=== PATIENT | female | born 1965 | race Caucasian/White ===

== ENCOUNTER 2021-06-20 02:13 | Inpatient (IN) | payer MEDICARE ==
[2021-06-20] MEDS ORDERED: DEXAMETHASONE 10 MG/ML VIAL IVP STA (02:25)
--- NOTE | 2021-06-20 02:30 | ED Physician Documentation ---
PD HPI DYSPNEA - Stated complaint Stated Complaint: SOA - Chief complaint Chief Complaint: Resp - History obtained from History obtained from: Patient - Additional information Additional information: 55yF with pmh sarcoidosis p/w SOA X 2-3 days, gradual onset, progressive, worse with exertion, a/w nonproductive cough. patient was on the ob floor watching her daughter give , became SOA and came to the ED. of note she was covid + Jun 09, 2021 per her GARRY. She states she had been feeling better, but then worsened again, was put on a steroid taper by her consulting sales executive and still has 3 days left . denies fever, cp, nausea. Patient o2 sat in high 70s on RA with good pleth on arrival, improving to 92% on 3L nasal cannula. Review of Systems Ten Systems: 10 systems reviewed and negative Constitutional: denies: Fever, Chills Respiratory: reports: Dyspnea, Cough GI: denies: Nausea PD PAST MEDICAL HISTORY - Allergies Allergies/Adverse Reactions: Allergies Allergy/AdvReac Type Severity Reaction Status Date / Time No Known Drug Allergies Allergy Verified 06/20/21 02:35 PD ED PE NORMAL - Vitals Vital signs reviewed: Yes - General General: Alert and oriented X 3, Well developed/nourished, Other (mild respiratory distress) - HEENT HEENT: Atraumatic, PERRL, EOMI - Neck Neck: Supple, no meningeal sign - Cardiac Cardiac: RRR - Respiratory Respiratory: Other (BL coarse breath sounds) - Abdomen Abdomen: Non tender, Non distended - Back Back: No CVA TTP - Derm Derm: Normal color, Warm and dry - Extremities Extremities: No deformity, No edema, No calf tenderness / cord - Neuro Neuro: Alert and oriented X 3, No motor deficit, No sensory deficit, Normal speech - Psych Psych: Normal mood, Normal affect Results - Vitals Vitals: Vital Signs - 24 hr 06/20/21 06/20/21 06/20/21 02:14 02:15 02:30 Temperature 36.7 C Heart Rate 71 64 Respiratory 24 24 Rate Blood Pressure 128/72 128/78 O2 Saturation 85 L 77 L 96 06/20/21 03:03 Temperature Heart Rate 61 Respiratory 23 Rate Blood Pressure 121/72 O2 Saturation 94 Oxygen O2 Source Room air Oxygen Flow Rate 3 - Labs Labs: Laboratory Tests 06/20/21 06/20/2122 02:35 02:35 02:45 WBC 5.9 RBC 3.67 L Hgb 11.0 L Hct 34.3 L MCV 93.5 MCH 30.0 MCHC 32.1 RDW 15.9 H Plt Count 268 MPV 8.9 Neut # (Auto) 4.5 Lymph # (Auto) 0.9 L [place] # (Auto) 0.4 Eos # (Auto) 0.0 Baso # (Auto) 0.0 Absolute Nucleated RBC 0.00 Nucleated RBC % 0.0 VBG pH 7.349 VBG pCO2 38.2 L VBG pO2 87.2 H VBG HCO3 20.6 L VBG Total CO2 21.7 L VBG O2 Saturation 95.8 H VBG Base Excess -4.6 L Sodium 135 Potassium 3.7 Chloride 103 Carbon Dioxide 21 Anion Gap 11.0 BUN 25 H Creatinine 1.0 Estimated GFR (MDRD) 58 L Glucose 100 Calcium 8.8 Total Bilirubin 0.4 AST 18 ALT 16 Alkaline Phosphatase 88 Total Protein 7.2 Albumin 3.1 L Globulin 4.1 Albumin/Globulin Ratio 0.8 L Lipase 207 H PD MEDICAL DECISION MAKING - ED course ED course: 55yF p/w hypoxia, recent diagnosis of covid, SOA on arrival with subjective improvement on 5L nasal cannula. d/w Dr. Dodge for admission. Departure - Departure Disposition: 66 [facility] DC/Xfer Clinical Impression: COVID-19, Shortness of breath, Anemia Condition: Stable
[2021-06-20 02:41] LABS: BASOPHILS % (AUTO) 0.3 %; EOSINOPHILS % (AUTO) 0.7 %; HCT - HEMATOCRIT 34.3 % (37.0-47.0); LYMPHOCYTES # (AUTO) 0.9 10^3/uL (1.5-3.5); MEAN CORPUSCULAR HGB CONC 32.1 g/dL (32.0-36.0); MEAN CORPUSCULAR VOLUME 93.5 fL (81.0-99.0); MEAN PLATELET VOLUME 8.9 fL (7.9-10.8); MONOCYTES # (AUTO) 0.4 10^3/uL (0.0-1.0); MONOCYTES % (AUTO) 6.1 %; NEUTROPHILS # (AUTO) 4.5 10^3/uL (1.5-6.6); NEUTROPHILS % (AUTO) 76.2 %; PLT - PLATELET COUNT 268 10^3/uL (130-450); RED BLOOD COUNT 3.67 10^6/uL (4.20-5.40); RED CELL DISTRIBUTION WIDTH 15.9 % (12.0-15.0); WHITE BLOOD COUNT 5.9 x10^3/uL (4.8-10.8)
[2021-06-20 02:51] LABS: VBG BASE EXCESS -4.6 mmol/L (-2 - +2); VBG HCO3 20.6 mmol/L (23-28); VBG OXYGEN SATURATION 95.8 % (60-80); VBG PCO2 38.2 mmHg (41-51); VBG PH 7.349 (7.31-7.41); VBG PO2 87.2 mmHg (25-47); VBG TOTAL CO2 21.7 mmol/L (24-29)
[2021-06-20 02:53] LABS: ALBUMIN 3.1 g/dL (3.2-5.5); ALBUMIN/GLOBULIN RATIO 0.8 (1.0-2.2); BILIRUBIN,TOTAL 0.4 mg/dL (0.2-1.0); CALCIUM 8.8 mg/dL (8.5-10.3); POTASSIUM 3.7 mmol/L (3.5-5.0); TOTAL PROTEIN 7.2 g/dL (6.7-8.2)
[2021-06-20] MEDS ORDERED: ACETAMINOPHEN 325 MG TABLET PO PRN (03:13)
[2021-06-20] MEDS ORDERED: ONDANSETRON 4 MG/2 ML VIAL IVP PRN (03:13)
[2021-06-20] MEDS ORDERED: SODIUM CHLORIDE FLUSH 0.9% 10 ML SYRINGE IVP PRN (03:13)
[2021-06-20] MEDS ORDERED: ONDANSETRON ODT 4 MG TABLET TL PRN (03:13)
--- NOTE | 2021-06-20 03:18 | HISTORY & PHYSICAL EXAMINATION ---
Chief Complaint - Chief Complaint Chief Complaint: Shortness of breath History of Present Illness - Admitted From Admitted From:: Home - History Obtained From Records Reviewed: Yes History obtained from: Patient, ER Physician, EMR - History of Present Illness HPI Comment/Other: This is a 55-year-old female with a past medical history significant for pulmonary sarcoidosis, psoriatic arthritis, rheumatoid arthritis, type 2 diabetes mellitus who presents today complaining of worsening shortness of breath. She states she demonstrated breath for past week or so but this has really progressed for the past 2 to 3 days. She was diagnosed with Covid she believes in mid May but was never hospitalized for this. The emergency department physician confirmed that she did test positive for Covid but this was actually more recent on June 09. The patient is vaccinated with maternal and has received a booster shot. She states that she began to feel short of breath about a little over a week ago and she had a televisit with her vending machine repairer at [facility] who prescribed her prednisone taper for suspected exacerbation of her pulmonary sarcoidosis. She states she is in the last 3 days of her taper now but she has felt more short of breath. She states she almost always feels short of breath with activity and that is her baseline but this is now a little worse than usual. She is not on oxygen at baseline. She states her pulse ox usually va michelle from 90-95% with activity and is above 95% at rest. She has had no fevers or chills. Her chronic cough is the same. She denies any chest pain, leg edema, history of DVT, recent travel. She is on methotrexate, hydroxychloroquine, Januvia. She normally takes methotrexate on Mondays but did not take this yesterday as she has been at the hospital with her daughter who just gave 3 days ago and she forgot to bring her medications. In the emergency department, she is noted to be hypoxic on room air with sats in the high 70s with activity. At rest her saturations were stable in the mid 90s on room air. Chest x-ray revealed bilateral infiltrates. She was given Decadron and medicine was consulted for admission. We discussed goals of care and she would like to be a full code. History - Past Medical History Respiratory: reports: Other (Sarcoidoss) Musculoskeletal: reports: Osteoarthritis, Rheumatoid arthritis, Other (Psoriatic arthritis.) - Family & Social History Family History Comment/Other: She reports both of her parents had a history of diabetes and heart disease. Living arrangement: At home Social History Notes: She is a non-smoker and has never smoked. She will rarely drink alcohol. Meds/Allgy - Allergies Allergies/Adverse Reactions: Allergies Allergy/AdvReac Type Severity Reaction Status Date / Time No Known Drug Allergies Allergy Verified 06/20/21 02:35 Review of Systems - Constitutional Constitutional: denies: Fatigue, Fever, Chills - Ears, Nose & Throat Ears, Nose & Throat: denies: Nasal discharge, Nasal congestion - Cardiovascular Cariovascular: reports: Exertional dyspnea, Decr. exercise tolerance. denies: Chest pain, Edema, Lightheadedness, Syncope - Respiratory Respiratory: reports: Cough, SOB at rest, SOB with exertion. denies: Sputum production - Gastrointestinal Gastrointestinal: denies: Abdominal pain, Nausea, Vomiting - Genitourinary Genitourinary: denies: Dysuria, Frequency, Urgency, Hematuria - Musculoskeletal Musculoskeletal: denies: Muscle pain, Muscle aches - Integumentary Integumentary: denies: Rash - Neurological Neurological: denies: General weakness, Focal weakness, Dizziness - Hematologic/Lymphatic Hematologic/Lymphatic: denies: Blood clots, Bleeding tendencies - All Other Systems All Other Systems: reports: Reviewed and negative Prior Level of Functionality: She is independent with her ADLs. Exam - Vital Signs Reviewed Vital Signs: Yes Vital Signs: Vital Signs x48h Temp Pulse Resp BP Pulse Ox 06/20/21 02:30 64 24 128/78 96 06/20/21 02:15 77 L 06/20/21 02:14 36.7 C 71 24 128/72 85 L - Physical Exam General Appearance: positive: No acute distress, Alert Eyes Bilateral: positive: Normal inspection, Conjunctivae nml ENT: positive: ENT inspection nml Neck: positive: Nml inspection Respiratory: positive: No respiratory distress, Rhonchi. negative: Wheezes, Rales Cardiovascular: positive: Regular rate & rhythm, No murmur. negative: Tachycardia Abdomen: positive: Non-tender, No distention. negative: Tenderness Skin: positive: Warm, Dry Extremities: positive: No pedal edema Neurologic/Psychiatric: positive: Motor nml. negative: Disoriented to person, Disoriented to place, Disoriented to time Conclusion/Plan - Problem List (1) Acute respiratory failure with hypoxia Conclusion/Plan: This appears to be secondary to COVID-19 pneumonia. Her chest x-ray reveals bilateral infiltrates. She has no fever or leukocytosis. She is not hypoxic at rest but she does desaturate to 70% on room air with minimal activity. There is no obvious evidence of bacterial infection at this time. We will place her on Decadron. No remdesivir given she has been ill for nearly 2 weeks now. We will check a D-dimer at this is elevated we will proceed with a CT angiogram for further evaluation. (2) Pneumonia due to COVID-19 virus Conclusion/Plan: This appears to be the cause of her respiratory failure with hypoxia. X-ray reveals bilateral infiltrates. She is vaccinated with a booster shot. Management as mentioned above. (3) Pulmonary sarcoidosis Conclusion/Plan: She has a known history of pulmonary sarcoidosis which has been stable. We will manage her respiratory failure which is felt to be secondary to the COVID-19 pneumonia as mentioned above. (4) Type 2 diabetes mellitus Conclusion/Plan: She is on Januvia at home. We will place her on a carb controlled diet and sl iding scale. If her blood glucose becomes elevated due to steroids then we will add Lantus. (5) Rheumatoid arthritis Conclusion/Plan: She is on methotrexate which we will hold at this time given the concern for COVID-19 pneumonia. Tylenol as needed for pain. - Lab Results Lab results reviewed: Yes Fish Bones: 06/20/21 02:35 06/20/21 02:35 - Diagnostic Imaging Results Diagnostic Imaging Results: positive: Prelim report reviewed Core Measures - Anticipated LOS I expect patient to be DC'd or transferred within 96 hours.: Yes - Issues Hospital Issues and Management Plan: 55-year-old female with a history of pulmonary sarcoidosis, rheumatoid arthritis, diabetes mellitus presents with worsening dyspnea after being diagnosed with Covid about 11 days ago. She will be admitted for steroids. - DVT/VTE - Prophylaxis VTE/DVT Device ordered at admit?: Yes VTE/DVT Prophylaxis med ordered at admit?: Yes
[2021-06-20 03:35] LABS: CORONAVIRUS 229E-RESP PCR NOT DETECTED; CORONAVIRUS HKU1-RESP PCR NOT DETECTED; CORONAVIRUS NL63-RESP PCR NOT DETECTED; CORONAVIRUS OC43-RESP PCR NOT DETECTED
[2021-06-20 03:37] LABS: B. PARAPERTUSSIS- RESP PCR PAN NOT DETECTED; B. PERTUSSIS- RESP PCR PANEL NOT DETECTED; C. PNEUMONIAE- RESP PCR PANEL NOT DETECTED; HUMAN METAPNEUMOVIRUS NOT DETECTED; INFLUENZA A- RESP PCR PANEL NOT DETECTED; INFLUENZA B - RESP PCR PANEL NOT DETECTED; M. PNEUMONIAE- RESP PCR PANEL NOT DETECTED; PARAINFLUENZA VIRUS 1 NOT DETECTED; PARAINFLUENZA VIRUS 2 NOT DETECTED; PARAINFLUENZA VIRUS 3 NOT DETECTED; PARAINFLUENZA VIRUS 4 NOT DETECTED; RHINOVIRUS/ENTEROVIRUS NOT DETECTED; RSV- RESP PCR PANEL NOT DETECTED; SARS-CoV-2 -RESP PCR PANEL DETECTED
--- NOTE | 2021-06-20 08:22 | XRAY Report ---
PROCEDURE: Chest 1 View X-Ray INDICATIONS: covid+ SOA TECHNIQUE: One view of the chest was acquired. COMPARISON: 01/05/2016 FINDINGS: Surgical changes and devices: None. Lungs and pleura: No pleural effusions or pneumothorax. Moderate basilar predominant reticulonodular pulmonary opacity. Mediastinum: Mediastinal contours appear normal. Heart size is normal. Bones and chest wall: No suspicious bony lesions. Overlying soft tissues appear unremarkable. IMPRESSION: Moderate bilateral pneumonia. Concordant with preliminary interpretation. Reviewed by: Paige Luong MD on 06/20/2021 8:20 AM [facility] Approved by: Paige Luong MD on 06/20/2021 8:20 AM [facility] Station ID: [id number]
[2021-06-20] MEDS: INSULIN ASPART 300 UNIT/3 ML PEN SUBQ SCH ×4 (08:28→21:00)
[2021-06-20] MEDS: SODIUM CHLORIDE FLUSH 0.9% 10 ML SYRINGE IVP SCH ×2 (08:29→17:03)
[2021-06-20] MEDS: dexAMETHasone 4 MG TABLET PO SCH (08:29)
--- NOTE | 2021-06-20 08:37 | PROVIDER PROGRESS NOTE ---
Hospitalist Cross-cover Note - Cross-Cover Note Cross-Cover Note: This was a courtesy follow-up to admission done this morning around 3:00 AM Patient was resting comfortably in bed at time of exam. She denied dyspnea except with ambulation. She has a cough. She denies chest pain, fever or chills. Oxygen saturation was 97 to 99% on 2 L. She had a mild wheeze on auscultation. Her D-dimer was 1034.6. As a result CT angio of the chest was ordered. She was started empirically on therapeutic dose Lovenox 100 mg subcu twice daily. Robitussin with codeine and DuoNeb ordered.
[2021-06-20] MEDS ORDERED: ENOXAPARIN 40 MG/0.4 ML SYRINGE SUBQ SCH (09:00)
[2021-06-20] MEDS ORDERED: ENOXAPARIN 60 MG/0.6 ML SYRINGE SUBQ ONE (10:00)
--- NOTE | 2021-06-20 12:03 | PHARMACY PROGRESS NOTE ---
- Best Possible Medication History Admit Date and Time: 06/20/213 Processed by: Pharmacy Medication History completed: Yes Patient Interview: Completed Secondary Source(s): Pharmacy records, Insurance records As the person ultimately responsible for medication therapy, providers are able to order a medication from an existing home medication list in [facility] via the "Reconcile Routine" prior to Confirmation of that medication by client support consultant. Such practice is discouraged except when the physician, in their clinical judgment, deems that a medical need exists for a medication without regard to previous use.
[2021-06-20] MEDS ORDERED: IPRATROPIUM/ALBUTEROL 3 ML NEB INH PRN (13:41)
[2021-06-20] MEDS: guaiFENesin/CODEINE 5 ML UDC PO PRN ×2 (14:06→21:01)
[2021-06-20] MEDS ORDERED: ENOXAPARIN 100 MG/ML SYRINGE SUBQ SCH (21:00)
[2021-06-20] MEDS: ADVAIR 230/21 INH SCH (21:01)
[2021-06-21] MEDS: SODIUM CHLORIDE FLUSH 0.9% 10 ML SYRINGE IVP SCH ×3 (00:16→21:14)
[2021-06-21] MEDS ORDERED: IOVERSOL 320 100 ML VIAL IVP ONE ×2 (05:26→05:58)
[2021-06-21 07:19] LABS: BASOPHILS % (AUTO) 0.4 %; EOSINOPHILS % (AUTO) 0.8 %; HCT - HEMATOCRIT 34.3 % (37.0-47.0); HGB - HEMOGLOBIN 10.7 g/dL (12.0-16.0); LYMPHOCYTES # (AUTO) 0.8 10^3/uL (1.5-3.5); MEAN CORPUSCULAR HEMOGLOBIN 29.6 pg (27.0-31.0); MEAN CORPUSCULAR HGB CONC 31.2 g/dL (32.0-36.0); MEAN CORPUSCULAR VOLUME 94.8 fL (81.0-99.0); MEAN PLATELET VOLUME 9.1 fL (7.9-10.8); MONOCYTES # (AUTO) 0.4 10^3/uL (0.0-1.0); MONOCYTES % (AUTO) 8.7 %; NEUTROPHILS # (AUTO) 3.5 10^3/uL (1.5-6.6); NEUTROPHILS % (AUTO) 72.1 %; PLT - PLATELET COUNT 302 10^3/uL (130-450); RED BLOOD COUNT 3.62 10^6/uL (4.20-5.40); RED CELL DISTRIBUTION WIDTH 15.8 % (12.0-15.0); WHITE BLOOD COUNT 4.8 x10^3/uL (4.8-10.8)
[2021-06-21 07:28] LABS: CALCIUM 9.2 mg/dL (8.5-10.3); POTASSIUM 4.6 mmol/L (3.5-5.0)
[2021-06-21] MEDS: ADVAIR 230/21 INH SCH ×2 (07:51→21:15)
[2021-06-21] MEDS ORDERED: ENOXAPARIN 100 MG/ML SYRINGE SUBQ SCH (09:00)
--- NOTE | 2021-06-21 09:12 | CT Report ---
PROCEDURE: ANGIO CHEST W/WO INDICATIONS: Dyspnea, elevated DDimer CONTRAST: IV CONTRAST: Optiray 320 ml: 80 PO CONTRAST: *NO PO CONTRAST TECHNIQUE: After the administration of intravenous contrast, 2 mm axial images were acquired from the pulmonary apices to the posterior costophrenic angles during the arterial phase. In addition, 1 mm lung kernel and 5 mm soft tissue kernel reconstructions were performed. 3-dimensional coronal oblique maximum int ensity projection (MIP) reformats, 8 mm axial MIP, and 5 mm coronal and sagittal MPR reformats were t hen performed through the thorax. For radiation dose reduction, the following was used: automated exp osure control, adjustment of mA and/or kV according to patient size. COMPARISON: Chest radiograph dated 06/20/2021 and 01/05/2016. FINDINGS: Image quality: Excellent. Pulmonary arteries: Pulmonary arteries are normal in size, and demonstrate no intraluminal filling d efects to suggest central pulmonary embolism. Lungs and pleura: Extensive geographic areas of groundglass opacities scattered throughout bilateral lung parada are seen. 5 mm solid nodule is noted in lateral right upper lobe series 6 image 86. 7 mm solid nodule is seen in right middle lobe series 6 image 187. No pleural effusions or pneumothorax. Central and peripheral airways are patent. Mediastinum: Heart size is mildly enlarged, without pericardial effusion. Multiple calcified lymph nodes are seen scattered in mediastinum measures up to 8 mm in short axis diameter in right paratrach eal space and 7 mm in short axis diameter and precarinal space. No mediastinal or hilar adenopathy by size criteria. Thoracic aorta is normal in caliber and enhancement. Esophagus is normal in caliber, with a small hiatal hernia. Bones and chest wall: No suspicious bony lesions. Ribs and thoracic spine appear intact throughout. No axillary or supraclavicular adenopathy. The thyroid is normal in size and there are no incident al findings. Abdomen: Visualized upper abdominal solid organs appear normal in the early arterial phase of enhanc ement. IMPRESSION: 1. No evidence of pulmonary emboli. No thoracic aortic aneurysm or gross dissection. 2. Extensive geographic areas of groundglass opacities scattered throughout bilateral lung parada con sistent with multilobar infiltrates secondary to: 19 infection. 3. Subcentimeter solid nodules seen in right upper lobe and right middle lobe as above, consider foll ow-up CT chest in 6 months for evaluation of stability. 4. Calcified lymph nodes in mediastinum and bilateral hilar region suggestive of prior granulomatous infection. No lymphadenopathy is seen by size criteria. 5. Small hiatal hernia. No significant discrepancies from preliminary reading. CLINICAL RECOMMENDATION STATEMENTS: In patients <35 years with an ITN detected on CT, MRI, or extrathyroidal ultrasound, the Committee re commends further evaluation with dedicated thyroid ultrasound if the nodule is "e1 cm and has no susp icious imaging features, and if the patient has normal life expectancy. In patients "e35 years with an ITN detected on CT, MRI, or extrathyroidal ultrasound, the Committee r ecommends further evaluation with dedicated thyroid ultrasound if the nodule is "e1.5 cm and has no s uspicious imaging features, and if the patient has normal life expectancy. (ACR, 2014) Reviewed by: Johny Gamez MD on 06/21/2021 9:11 AM PST Approved by: Johny Gamez MD on 06/21/2021 9:11 AM PST Station ID: [id number]
[2021-06-21] MEDS: INSULIN ASPART 300 UNIT/3 ML PEN SUBQ SCH ×4 (09:18→21:15)
[2021-06-21] MEDS: cefTRIAXone 1 GM in SODIUM CHLORIDE 0.9% MINIBAG 100 ML IV SCH (09:19)
[2021-06-21] MEDS: CHOLECALCIFEROL 25 MCG TABLET PO SCH (09:24)
[2021-06-21] MEDS: dexAMETHasone 4 MG TABLET PO SCH (09:25)
[2021-06-21] MEDS: guaiFENesin/CODEINE 5 ML UDC PO PRN ×2 (09:32→18:32)
[2021-06-21] MEDS: AZITHROMYCIN INJ 500 MG in SODIUM CHLORIDE 0.9% 250 ML IV SCH (10:31)
--- NOTE | 2021-06-21 11:27 | PROVIDER PROGRESS NOTE ---
Assessment/Plan - Problem List (1) Acute respiratory failure with hypoxia Assessment/Plan: Likely secondary to COVID-19 infection. However patient also has baseline pulmonary sarcoidosis. Currently on 3 L of oxygen via nasal cannula with oxygen saturation 90 to 94% Patient has been symptomatic for more than 10 days prior to presentation. On Decadron 6 mg IV daily. Rocephin 1 g IV daily and azithromycin 500 mg IV daily for 3 doses ordered Robitussin with codeine and Tessalon Perles ordered as needed for cough. Not treated with remdesivir due to duration of symptoms. (2) COVID-19 Assessment/Plan: Currently on 3 L of oxygen via nasal cannula with oxygen saturation 90 to 94% Patient has been symptomatic for more than 10 days prior to presentation. On Decadron 6 mg IV daily. Rocephin 1 g IV daily and azithromycin 500 mg IV daily for 3 doses ordered Robitussin with codeine and Tessalon Perles ordered as needed for cough. Not treated with remdesivir due to duration of symptoms. (3) Pulmonary sarcoidosis Assessment/Plan: Patient's methotrexate and hydroxychloroquine currently on hold while treating Covid infection. Continue Decadron 6 mg IV daily. (4) Rheumatoid arthritis Assessment/Plan: Patient's methotrexate and hydroxychloroquine currently on hold while treating Covid infection. Continue Decadron 6 mg IV daily. (5) Type 2 diabetes mellitus Assessment/Plan: On Januvia 100 mg p.o. daily. This has been held while in the hospital. Sliding scale insulin. Accu-Cheks before every meal and at bedtime. Blood glucose appropriately controlled. (6) Sinus bradycardia Assessment/Plan: Suspect secondary to COVID-19 infection. Heart rate has mostly fluctuated between 47 and 65. Patient is currently asymptomatic. We will continue to monitor closely. - Current Meds Current Meds: Current Medications Generic Name Dose Route Start Last Admin Trade Name Freq PRN Reason Stop Dose Admin Cholecalciferol 50 mcg 06/21/21 10:00 06/21/21 09:24 Cholecalciferol 25 Mcg Tablet PO Not Given DAILY LUIZ Dexamethasone 6 mg 06/20/21 09:00 06/21/21 09:25 Dexamethasone 4 Mg Tablet PO 6 mg DAILY LUIZ Administration Enoxaparin Sodium 40 mg 06/21/21 09:00 06/21/21 09:25 Enoxaparin 100 Mg/Ml Syringe SUBQ 40 mg DAILY LUIZ Administration Guaifenesin/Codeine Phosphate 5 ml 06/20/21 13:41 06/21/21 09:32 Guaifenesin/Codeine 5 Ml Udc PO 5 ml Q6HR PRN Administration Cough Ceftriaxone Sodium 1 gm/ 100 mls @ 200 mls/hr 06/21/21 09:00 06/21/21 09:19 Sodium Chloride IV 06/25/21 09:29 200 mls/hr DAILY LUIZ Administration Azithromycin 500 mg/ Sodium 250 mls @ 250 mls/hr 06/21/21 09:00 06/21/21 10:31 Chloride IV 06/23/21 09:59 250 mls/hr DAILY LUIZ Administration Insulin Aspart 1 - 9 unit 06/20/21 08:00 06/21/21 09:18 Insulin Aspart 300 Unit/3 Ml Pen SUBQ Not Given 0800,1200,1700,2100 [facility] Protocol Advair 230/ 2 each 06/20/21 20:00 06/21/21 07:51 INH 2 each RTBID LUIZ Administration Sodium Chloride 10 ml 06/20/21 09:00 06/21/21 09:30 Sodium Chloride Flush 0.9% 10 Ml Syringe IVP 10 ml 0100,0900,1700 LUIZ Administration - Lab Result Fish Bone Diagrams: 06/21/21 07:13 06/21/21 07:13 - Additional Planning My Orders: My Active Orders 06/20/21 13:41 Nebulizer/MDI Tx. [RC] QID Resp Teach Nebulizer/MDI [RC] .ONCE Ipratropium/Albuterol [Duoneb] 3 ml INH Q4HR PRN guaiFENesin/CODEINE [Robitussin AC] 5 ml PO Q6HR PRN 06/20/21 20:00 Patient Own Med [Patient Own Medication] 2 each INH RTBID 06/21/21 VITAMIN D,25-OH,TOTAL,IA [REFLAB] Routine 06/21/21 09:00 Azithromycin Inj [Zithromax Inj] 500 mg Sodium Chloride 0.9% [Normal Saline 0.9%] 250 ml IV DAILY Enoxaparin [Lovenox] 40 mg SUBQ DAILY cefTRIAXone [Rocephin] 1 gm Sodium Chloride 0.9% Minibag [Normal Saline 0.9% Minibag] 100 ml IV DAILY 06/21/21 10:00 Cholecalciferol [Vitamin D3] 50 mcg PO DAILY Subjective - Subjective Patient Reports: Other (Resting comfortably in bed. Denies any significant change in breathing compared to yesterday. Cough persist. Wheezing and mild crackles noted on auscultation. Mildly bradycardic.) Objective Vital Signs: Vital Signs - 24 hr 06/20/21 06/20/21 06/20/21 11:48 17:00 20:54 Temperature 36.7 C 36.8 C Heart Rate Heart Rate [ 56 L 59 L Brachial] Respiratory 72 H 19 18 Rate Blood Pressure 131/66 H [Left Brachial artery] Blood Pressure 120/72 [Right] O2 Saturation 94 95 06/21/21 06/21/21 06/21/21 00:01 05:00 07:51 Temperature 36.3 C L 36.3 C L 36.4 C L Heart Rate Heart Rate [ 61 50 L 47 L Brachial] Respiratory 19 17 20 Rate Blood Pressure 107/72 110/64 [Left Brachial artery] Blood Pressure 108/63 [Right] O2 Saturation 93 92 94 06/21/21 06/21/21 08:02 11:05 Temperature 36.4 C L 36.6 C Heart Rate 47 L Heart Rate [ 57 L Brachial] Respiratory 20 20 Rate Blood Pressure [Left Brachial artery] Blood Pressure 118/66 [Right] O2 Saturation 94 90 L Oxygen O2 Source Nasal cannula Oxygen Flow Rate 2 I&O (Last 24 Hrs): Intake and Output Totals x24h 06/19/21 06/20/21 06/21/21 23:59 23:59 23:59 Intake Total 1180 Balance 1180 General: Alert, Oriented x3, Mild distress HEENT: Atraumatic, PERRLA, EOMI Neck: Supple, No JVD Neuro: Alert, Non Focal, Oriented Times 3 Cardiovascular: Other (Sinus bradycardia, no murmurs) Respiratory: Chest non-tender, Wheezes, Other (Mild to moderate dyspnea.) Abdomen: Normal bowel sounds, Soft, No tenderness Extremities: No clubbing, No edema, No tenderness/swelling Skin: No rashes, No breakdown, No significant lesion - Results Results: Laboratory Results WBC 4.8 x10^3/uL (4.8-10.8) 06/21/21 07:13 RBC 3.62 10^6/uL (4.20-5.40) L 06/21/21 07:13 Hgb 10.7 g/dL (12.0-16.0) L 06/21/21 07:13 Hct 34.3 % (37.0-47.0) L 06/21/21 07:13 MCV 94.8 fL (81.0-99.0) 06/21/21 07:13 MCH 29.6 pg (27.0-31.0) 06/21/21 07:13 MCHC 31.2 g/dL (32.0-36.0) L 06/21/21 07:13 RDW 15.8 % (12.0-15.0) H 06/21/21 07:13 Plt Count 302 10^3/uL (130-450) 06/21/21 07:13 MPV 9.1 fL (7.9-10.8) 06/21/21 07:13 Neut # (Auto) 3.5 10^3/uL (1.5-6.6) 06/21/21 07:13 Lymph # (Auto) 0.8 10^3/uL (1.5-3.5) L 06/21/21 07:13 [place] # (Auto) 0.4 10^3/uL (0.0-1.0) 06/21/21 07:13 Eos # (Auto) 0.0 10^3/uL (0.0-0.7) 06/21/21 07:13 Baso # (Auto) 0.0 10^3/uL (0.0-0.1) 06/21/21 07:13 Absolute Nucleated RBC 0.00 x10^3/uL 06/21/21 07:13 Nucleated RBC % 0.0 /100WBC 06/21/21 07:13 D-Dimer 1034.6 ng/mL (200.0-255.0) H 06/20/21 07:30 VBG pH 7.349 (7.31-7.41) 06/20/21 02:45 VBG pCO2 38.2 mmHg (41-51) L 06/20/21 02:45 VBG pO2 87.2 mmHg (25-47) H 06/20/21 02:45 VBG HCO3 20.6 mmol/L (23-28) L 06/20/21 02:45 VBG Total CO2 21.7 mmol/L (24-29) L 06/20/21 02:45 VBG O2 Saturation 95.8 % (60-80) H 06/20/21 02:45 VBG Base Excess -4.6 mmol/L (-2 - +2) L 06/20/21 02:45 Sodium 140 mmol/L (135-145) 06/21/21 07:13 Potassium 4.6 mmol/L (3.5-5.0) 06/21/21 07:13 Chloride 106 mmol/L (101-111) 06/21/21 07:13 Carbon Dioxide 27 mmol/L (21-32) 06/21/21 07:13 Anion Gap 7.0 (6-13) 06/21/21 07:13 BUN 25 mg/dL (6-20) H 06/21/21 07:13 Creatinine 1.0 mg/dL (0.4-1.0) 06/21/21 07:13 Estimated GFR (MDRD) 58 (>89) L 06/21/21 07:13 Glucose 94 mg/dL (70-100) 06/21/21 07:13 POC Whole Bld Glucose 107 mg/dL (70 - 100) H 06/21/21 11:06 Calcium 9.2 mg/dL (8.5-10.3) 06/21/21 07:13 Total Bilirubin 0.4 mg/dL (0.2-1.0) 06/20/21 02:35 AST 18 IU/L (10-42) 06/20/21 02:35 ALT 16 IU/L (10-60) 06/20/21 02:35 Alkaline Phosphatase 88 IU/L (42-121) 06/20/21 02:35 Troponin I High Sens 6.3 ng/L (2.3-14.8) 06/20/21 07:30 Total Protein 7.2 g/dL (6.7-8.2) 06/20/21 02:35 Albumin 3.1 g/dL (3.2-5.5) L 06/20/21 02:35 Globulin 4.1 g/dL (2.1-4.2) 06/20/21 02:35 Albumin/Globulin Ratio 0.8 (1.0-2.2) L 06/20/21 02:35 Lipase 207 U/L (22-51) H 06/20/21 02:35 Nasal Adenovirus (PCR) NOT DETECTED 06/20/21 02:35 Nasal B. parapertussis DNA (PCR) NOT DETECTED 06/20/21 02:35 Nasal Coronavir 229E PCR NOT DETECTED 06/20/21 02:35 Nasal Coronavir HKU1 PCR NOT DETECTED 06/20/21 02:35 Nasal Coronavir NL63 PCR NOT DETECTED 06/20/21 02:35 Nasal Coronavir OC43 PCR NOT DETECTED 06/20/21 02:35 Nasal Enterovir/Rhinovir PCR NOT DETECTED 06/20/21 02:35 Nasal Influenza B PCR NOT DETECTED 06/20/21 02:35 Nasal Influenza A PCR NOT DETECTED 06/20/21 02:35 Nasal Parainfluen 1 PCR NOT DETECTED 06/20/21 02:35 Nasal Parainfluen 2 PCR NOT DETECTED 06/20/21 02:35 Nasal Parainfluen 3 PCR NOT DETECTED 06/20/21 02:35 Nasal Parainfluen 4 PCR NOT DETECTED 06/20/21 02:35 Nasal RSV (PCR) NOT DETECTED 06/20/21 02:35 Nasal B.pertussis DNA PCR NOT DETECTED 06/20/21 02:35 Nasal C.pneumoniae (PCR) NOT DETECTED 06/20/21 02:35 Reji Human Metapneumo PCR NOT DETECTED 06/20/21 02:35 Nasal M.pneumoniae (PCR) NOT DETECTED 06/20/21 02:35 Nasal SARS-CoV-2 (PCR) DETECTED A 06/20/21 02:35 ABX Reporting Has patient been on IV antibiotics over the past 48 hours?: Yes
[2021-06-21] MEDS: SERTRALINE 50 MG TABLET PO SCH (12:43)
[2021-06-21] MEDS: PREGABALIN 25 MG CAPSULE PO SCH ×2 (12:43→21:15)
[2021-06-21] MEDS: BENZONATATE 100 MG CAPSULE PO PRN ×2 (13:10→21:15)
[2021-06-21] MEDS ORDERED: [UNRECOGNIZED DRUG - OTHER] INH SCH (21:00)
[2021-06-21] MEDS ORDERED: SALMETEROL INH SCH (21:00)
[2021-06-21] MEDS ORDERED: FLUTICASONE INH SCH (21:00)
[2021-06-21] MEDS: MONTELUKAST 10 MG TABLET PO SCH (21:15)
[2021-06-21] MEDS: ATORVASTATIN 10 MG TABLET PO SCH (21:15)
[2021-06-22] MEDS: SODIUM CHLORIDE FLUSH 0.9% 10 ML SYRINGE IVP SCH ×3 (00:05→16:14)
[2021-06-22 05:53] LABS: BASOPHILS % (AUTO) 0.2 %; EOSINOPHILS # (AUTO) 0.1 10^3/uL (0.0-0.7); EOSINOPHILS % (AUTO) 1.3 %; HCT - HEMATOCRIT 34.1 % (37.0-47.0); HGB - HEMOGLOBIN 10.6 g/dL (12.0-16.0); MEAN CORPUSCULAR HEMOGLOBIN 29.2 pg (27.0-31.0); MEAN CORPUSCULAR HGB CONC 31.1 g/dL (32.0-36.0); MEAN CORPUSCULAR VOLUME 93.9 fL (81.0-99.0); MEAN PLATELET VOLUME 9.1 fL (7.9-10.8); MONOCYTES # (AUTO) 0.4 10^3/uL (0.0-1.0); MONOCYTES % (AUTO) 7.8 %; NEUTROPHILS % (AUTO) 67.4 %; PLT - PLATELET COUNT 311 10^3/uL (130-450); RED BLOOD COUNT 3.63 10^6/uL (4.20-5.40); RED CELL DISTRIBUTION WIDTH 15.8 % (12.0-15.0); WHITE BLOOD COUNT 4.5 x10^3/uL (4.8-10.8)
[2021-06-22 06:02] LABS: CALCIUM 9.1 mg/dL (8.5-10.3); POTASSIUM 4.1 mmol/L (3.5-5.0)
[2021-06-22] MEDS: ADVAIR 230/21 INH SCH ×2 (06:50→20:13)
[2021-06-22] MEDS: guaiFENesin/CODEINE 5 ML UDC PO PRN ×2 (06:55→18:11)
--- NOTE | 2021-06-22 07:30 | PROVIDER PROGRESS NOTE ---
Assessment/Plan - Problem List (1) Acute respiratory failure with hypoxia Assessment/Plan: Likely secondary to COVID-19 infection. However patient also has baseline pulmonary sarcoidosis. Currently on 3 L of oxygen via nasal cannula with oxygen saturation 91 to 96% Patient has been symptomatic for more than 10 days prior to presentation. On Decadron 6 mg IV daily. Rocephin 1 g IV daily and azithromycin 500 mg IV daily for 3 doses ordered Robitussin with codeine and Tessalon Perles ordered as needed for cough. Not treated with remdesivir due to duration of symptoms which started more than 10 days prior to presentation. (2) COVID-19 Assessment/Plan: Currently on 3 L of oxygen via nasal cannula with oxygen saturation 91 to 96% Patient has been symptomatic for more than 10 days prior to presentation. On Decadron 6 mg IV daily. Rocephin 1 g IV daily and azithromycin 500 mg IV daily for 3 doses ordered Robitussin with codeine and Tessalon Perles ordered as needed for cough. Not treated with remdesivir due to duration of symptoms which started more than 10 days prior to presentation. (3) Pulmonary sarcoidosis Assessment/Plan: Patient's methotrexate currently on hold while treating Covid infection. Continue hydroxychloroquine. Continue Decadron 6 mg IV daily. (4) Rheumatoid arthritis Assessment/Plan: Patient's methotrexate currently on hold while treating Covid infection. Continue hydroxychloroquine. Continue Decadron 6 mg IV daily. (5) Type 2 diabetes mellitus Assessment/Plan: On Januvia 100 mg p.o. daily. This has been held while in the hospital. Sliding scale insulin. Accu-Cheks before every meal and at bedtime. Blood glucose appropriately controlled. (6) Sinus bradycardia Assessment/Plan: Suspect secondary to COVID-19 infection. Heart rate has mostly fluctuated between 47 and 65. Patient is currently asymptomatic. We will continue to monitor closely. Will order a 2D echo for 06/23/21 - Current Meds Current Meds: Current Medications Generic Name Dose Route Start Last Admin Trade Name Freq PRN Reason Stop Dose Admin Atorvastatin Calcium 10 mg 06/21/21 21:00 06/21/21 21:15 Atorvastatin 10 Mg Tablet PO 10 mg QPM LUIZ Administration Benzonatate 100 mg 06/21/21 11:30 06/21/21 21:15 Benzonatate 100 Mg Capsule PO 100 mg TID PRN Administration Cough Cholecalciferol 50 mcg 06/21/21 10:00 06/21/21 09:24 Cholecalciferol 25 Mcg Tablet PO Not Given DAILY [facility] Dexamethasone 6 mg 06/20/21 09:00 06/21/21 09:25 Dexamethasone 4 Mg Tablet PO 6 mg DAILY LUIZ Administration Enoxaparin Sodium 40 mg 06/21/21 09:00 06/21/21 09:25 Enoxaparin 100 Mg/Ml Syringe SUBQ 40 mg DAILY LUIZ Administration Guaifenesin/Codeine Phosphate 5 ml 06/20/21 13:41 06/22/21 06:55 Guaifenesin/Codeine 5 Ml Udc PO 5 ml Q6HR PRN Administration Cough Ceftriaxone Sodium 1 gm/ 100 mls @ 200 mls/hr 06/21/21 09:00 06/21/21 10:30 Sodium Chloride IV 06/25/21 09:29 Infused DAILY LUIZ Infusion Azithromycin 500 mg/ Sodium 250 mls @ 250 mls/hr 06/21/21 09:00 06/21/21 11:58 Chloride IV 06/23/21 09:59 Infused DAILY LUIZ Infusion Insulin Aspart 1 - 9 unit 06/20/21 08:00 06/21/21 21:15 Insulin Aspart 300 Unit/3 Ml Pen SUBQ Not Given 0800,1200,1700,2100 [facility] Protocol Montelukast Sodium 10 mg 06/21/21 21:00 06/21/21 21:15 Montelukast 10 Mg Tablet PO 10 mg QPM LUIZ Administration Advair 230/21 2 each 06/20/21 20:00 06/22/21 06:50 INH 2 each RTBID LUIZ Administration Pregabalin 75 mg 06/21/21 12:00 06/21/21 21:15 Pregabalin 25 Mg Capsule PO 75 mg BID LUIZ Administration Sertraline HCl 100 mg 06/21/21 12:00 06/21/21 12:43 Sertraline 50 Mg Tablet PO 100 mg DAILY LUIZ Administration Sodium Chloride 10 ml 06/20/21 09:00 06/22/21 00:05 Sodium Chloride Flush 0.9% 10 Ml Syringe IVP 10 ml 0100,0900,1700 LUIZ Administration - Lab Result Fish Bone Diagrams: 06/22/21 05:25 06/22/21 05:25 - Additional Planning My Orders: My Active Orders 06/21/21 09:00 Azithromycin Inj [Zithromax Inj] 500 mg Sodium Chloride 0.9% [Normal Saline 0.9%] 250 ml IV DAILY Enoxaparin [Lovenox] 40 mg SUBQ DAILY cefTRIAXone [Rocephin] 1 gm Sodium Chloride 0.9% Minibag [Normal Saline 0.9% Minibag] 100 ml IV DAILY 06/21/21 10:00 Cholecalciferol [Vitamin D3] 50 mcg PO DAILY 06/21/21 11:30 Benzonatate [Tessalon] 100 mg PO TID PRN 06/21/21 12:00 Pregabalin [Lyrica] 75 mg PO BID Sertraline [Zoloft] 100 mg PO DAILY 06/21/21 21:00 Atorvastatin [Lipitor] 10 mg PO QPM Montelukast [Singulair] 10 mg PO QPM 06/22/21 09:00 Fluticasone [Flonase] 2 sprays GOLDIE DAILY Subjective - Subjective Patient Reports: Other (Resting comfortably in bed. Reports that her breathing feels different but not able to explain. Increrased coughing. Wheezing, crackles and bradycardic persists. Oxygen saturation drops into the 80s with ambulation to the bathroom even on 3 L of oxygen via nasal cannula.) Objective Vital Signs: Vital Signs - 24 hr 06/21/21 06/21/21 06/21/21 07:51 08:02 11:05 Temperature 36.4 C L 36.4 C L 36.6 C Heart Rate 47 L Heart Rate [ 47 L 57 L Brachial] Respiratory 20 20 20 Rate Blood Pressure 110/64 [Left Brachial artery] Blood Pressure [Right Brachial artery] Blood Pressure 118/66 [Right] O2 Saturation 94 94 90 L 06/21/21 06/21/21 06/22/21 15:43 20:49 00:11 Temperature 36.9 C 36.6 C 36.4 C L Heart Rate Heart Rate [ 53 L 51 L 54 L Brachial] Respiratory 18 20 20 Rate Blood Pressure 125/69 [Left Brachial artery] Blood Pressure 114/67 [Right Brachial artery] Blood Pressure 124/79 [Right] O2 Saturation 97 93 95 06/22/21 06/22/21 06:45 07:15 Temperature 36.7 C Heart Rate Heart Rate [ 50 L Brachial] Respiratory 18 18 Rate Blood Pressure [Left Brachial artery] Blood Pressure 121/72 [Right Brachial artery] Blood Pressure [Right] O2 Saturation 91 L 94 Oxygen O2 Source Nasal cannula Oxygen Flow Rate 2 I&O (Last 24 Hrs): Intake and Output Totals x24h 06/20/21 06/21/21 06/22/21 23:59 23:59 23:59 Intake Total 1180 1390 200 Balance 1180 1390 200 Comments/Notes: General: Alert, Oriented x3, Mild distress HEENT: Atraumatic, PERRLA, EOMI Neck: Supple, No JVD Neuro: Alert, Non Focal, Oriented Times 3 Cardiovascular: Other (Sinus bradycardia, no murmurs) Respiratory: Chest non-tender, Wheezes, Other (Mild to moderate dyspnea.) Abdomen: Normal bowel sounds, Soft, No tenderness Extremities: No clubbing, No edema, No tenderness/swelling Skin: No rashes, No breakdown, No significant lesion - Results Results: Laboratory Results WBC 4.5 x10^3/uL (4.8-10.8) L 06/22/21 05:25 RBC 3.63 10^6/uL (4.20-5.40) L 06/22/21 05:25 Hgb 10.6 g/dL (12.0-16.0) L 06/22/21 05:25 Hct 34.1 % (37.0-47.0) L 06/22/21 05:25 MCV 93.9 fL (81.0-99.0) 06/22/21 05:25 MCH 29.2 pg (27.0-31.0) 06/22/21 05:25 MCHC 31.1 g/dL (32.0-36.0) L 06/22/21 05:25 RDW 15.8 % (12.0-15.0) H 06/22/21 05:25 Plt Count 311 10^3/uL (130-450) 06/22/21 05:25 MPV 9.1 fL (7.9-10.8) 06/22/21 05:25 Neut # (Auto) 3.0 10^3/uL (1.5-6.6) 06/22/21 05:25 Lymph # (Auto) 1.0 10^3/uL (1.5-3.5) L 06/22/21 05:25 [place] # (Auto) 0.4 10^3/uL (0.0-1.0) 06/22/21 05:25 Eos # (Auto) 0.1 10^3/uL (0.0-0.7) 06/22/21 05:25 Baso # (Auto) 0.0 10^3/uL (0.0-0.1) 06/22/21 05:25 Absolute Nucleated RBC 0.00 x10^3/uL 06/22/21 05:25 Nucleated RBC % 0.0 /100WBC 06/22/21 05:25 D-Dimer 1034.6 ng/mL (200.0-255.0) H 06/20/21 07:30 VBG pH 7.349 (7.31-7.41) 06/20/21 02:45 VBG pCO2 38.2 mmHg (41-51) L 06/20/21 02:45 VBG pO2 87.2 mmHg (25-47) H 06/20/21 02:45 VBG HCO3 20.6 mmol/L (23-28) L 06/20/21 02:45 VBG Total CO2 21.7 mmol/L (24-29) L 06/20/21 02:45 VBG O2 Saturation 95.8 % (60-80) H 06/20/21 02:45 VBG Base Excess -4.6 mmol/L (-2 - +2) L 06/20/21 02:45 Sodium 142 mmol/L (135-145) 06/22/21 05:25 Potassium 4.1 mmol/L (3.5-5.0) 06/22/21 05:25 Chloride 107 mmol/L (101-111) 06/22/21 05:25 Carbon Dioxide 25 mmol/L (21-32) 06/22/21 05:25 Anion Gap 10.0 (6-13) 06/22/21 05:25 BUN 26 mg/dL (6-20) H 06/22/21 05:25 Creatinine 1.0 mg/dL (0.4-1.0) 06/22/21 05:25 Estimated GFR (MDRD) 58 (>89) L 06/22/21 05:25 Glucose 88 mg/dL (70-100) 06/22/21 05:25 POC Whole Bld Glucose 117 mg/dL (70 - 100) H 06/21/21 20:42 Calcium 9.1 mg/dL (8.5-10.3) 06/22/21 05:25 Total Bilirubin 0.4 mg/dL (0.2-1.0) 06/20/21 02:35 AST 18 IU/L (10-42) 06/20/21 02:35 ALT 16 IU/L (10-60) 06/20/21 02:35 Alkaline Phosphatase 88 IU/L (42-121) 06/20/21 02:35 Troponin I High Sens 6.3 ng/L (2.3-14.8) 06/20/21 07:30 Total Protein 7.2 g/dL (6.7-8.2) 06/20/21 02:35 Albumin 3.1 g/dL (3.2-5.5) L 06/20/21 02:35 Globulin 4.1 g/dL (2.1-4.2) 06/20/21 02:35 Albumin/Globulin Ratio 0.8 (1.0-2.2) L 06/20/21 02:35 Lipase 207 U/L (22-51) H 06/20/21 02:35 25-OH Vitamin D Total 21 ng/mL (30-100) L 06/20/21 02:35 Nasal Adenovirus (PCR) NOT DETECTED 06/20/21 02:35 Nasal B. parapertussis DNA (PCR) NOT DETECTED 06/20/21 02:35 Nasal Coronavir 229E PCR NOT DETECTED 06/20/21 02:35 Nasal Coronavir HKU1 PCR NOT DETECTED 06/20/21 02:35 Nasal Coronavir NL63 PCR NOT DETECTED 06/20/21 02:35 Nasal Coronavir OC43 PCR NOT DETECTED 06/20/21 02:35 Nasal Enterovir/Rhinovir PCR NOT DETECTED 06/20/21 02:35 Nasal Influenza B PCR NOT DETECTED 06/20/21 02:35 Nasal Influenza A PCR NOT DETECTED 06/20/21 02:35 Nasal Parainfluen 1 PCR NOT DETECTED 06/20/21 02:35 Nasal Parainfluen 2 PCR NOT DETECTED 06/20/21 02:35 Nasal Parainfluen 3 PCR NOT DETECTED 06/20/21 02:35 Nasal Parainfluen 4 PCR NOT DETECTED 06/20/21 02:35 Nasal RSV (PCR) NOT DETECTED 06/20/21 02:35 Nasal B.pertussis DNA PCR NOT DETECTED 06/20/21 02:35 Nasal C.pneumoniae (PCR) NOT DETECTED 06/20/21 02:35 [place]ie Human Metapneumo PCR NOT DETECTED 06/20/21 02:35 Nasal M.pneumoniae (PCR) NOT DETECTED 06/20/21 02:35 Nasal SARS-CoV-2 (PCR) DETECTED A 06/20/21 02:35 ABX Reporting Has patient been on IV antibiotics over the past 48 hours?: Yes
[2021-06-22] MEDS: SERTRALINE 50 MG TABLET PO SCH (08:39)
[2021-06-22] MEDS: dexAMETHasone 4 MG TABLET PO SCH (08:39)
[2021-06-22] MEDS: CHOLECALCIFEROL 25 MCG TABLET PO SCH (08:39)
[2021-06-22] MEDS: PREGABALIN 25 MG CAPSULE PO SCH ×2 (08:39→20:18)
[2021-06-22] MEDS: FLUTICASONE NASAL SPRAY NAS SCH (08:40)
[2021-06-22] MEDS: cefTRIAXone 1 GM in SODIUM CHLORIDE 0.9% MINIBAG 100 ML IV SCH (08:42)
[2021-06-22] MEDS: INSULIN ASPART 300 UNIT/3 ML PEN SUBQ SCH ×4 (08:45→21:40)
[2021-06-22] MEDS: AZITHROMYCIN INJ 500 MG in SODIUM CHLORIDE 0.9% 250 ML IV SCH (10:54)
[2021-06-22] MEDS: ENOXAPARIN 40 MG/0.4 ML SYRINGE SUBQ SCH (10:54)
[2021-06-22] MEDS: FOLIC ACID 1 MG TABLET PO SCH (10:54)
[2021-06-22] MEDS ORDERED: CARBOXYMETHYLCELLULOSE OPHTH DROPS EACHEYE PRN (11:15)
[2021-06-22] MEDS ORDERED: FOLIC ACID 1 MG TABLET PO SCH (15:00)
[2021-06-22] MEDS: MONTELUKAST 10 MG TABLET PO SCH (20:17)
[2021-06-22] MEDS: BENZONATATE 100 MG CAPSULE PO PRN (20:18)
[2021-06-22] MEDS: ATORVASTATIN 10 MG TABLET PO SCH (20:18)
[2021-06-22] MEDS: HYDROXYCHLOROQUINE 200 MG TABLET PO SCH (20:18)
[2021-06-23] MEDS: SODIUM CHLORIDE FLUSH 0.9% 10 ML SYRINGE IVP SCH ×2 (00:30→08:33)
[2021-06-23 05:57] LABS: BASOPHILS % (AUTO) 0.2 %; EOSINOPHILS # (AUTO) 0.1 10^3/uL (0.0-0.7); HCT - HEMATOCRIT 34.1 % (37.0-47.0); HGB - HEMOGLOBIN 10.8 g/dL (12.0-16.0); LYMPHOCYTES % (AUTO) 22.7 %; MEAN CORPUSCULAR HEMOGLOBIN 29.9 pg (27.0-31.0); MEAN CORPUSCULAR HGB CONC 31.7 g/dL (32.0-36.0); MEAN CORPUSCULAR VOLUME 94.5 fL (81.0-99.0); MONOCYTES # (AUTO) 0.4 10^3/uL (0.0-1.0); MONOCYTES % (AUTO) 9.2 %; NEUTROPHILS # (AUTO) 2.9 10^3/uL (1.5-6.6); NEUTROPHILS % (AUTO) 64.2 %; PLT - PLATELET COUNT 323 10^3/uL (130-450); RED BLOOD COUNT 3.61 10^6/uL (4.20-5.40); RED CELL DISTRIBUTION WIDTH 15.6 % (12.0-15.0); WHITE BLOOD COUNT 4.6 x10^3/uL (4.8-10.8)
[2021-06-23 06:07] LABS: POTASSIUM 4.3 mmol/L (3.5-5.0)
[2021-06-23] MEDS: ADVAIR 230/21 INH SCH (06:21)
[2021-06-23] MEDS: INSULIN ASPART 300 UNIT/3 ML PEN SUBQ SCH ×2 (07:33→11:31)
--- NOTE | 2021-06-23 07:50 | PROVIDER PROGRESS NOTE ---
Assessment/Plan - Current Meds Current Meds: Current Medications Generic Name Dose Route Start Last Admin Trade Name Freq PRN Reason Stop Dose Admin Atorvastatin Calcium 10 mg 06/21/21 21:00 06/22/21 20:18 Atorvastatin 10 Mg Tablet PO 10 mg QPM LUIZ Administration Benzonatate 100 mg 06/21/21 11:30 06/22/21 20:18 Benzonatate 100 Mg Capsule PO 100 mg TID PRN Administration Cough Dexamethasone 6 mg 06/20/21 09:00 06/22/21 08:39 Dexamethasone 4 Mg Tablet PO 6 mg DAILY LUIZ Administration Enoxaparin Sodium 40 mg 06/22/21 11:00 06/22/21 10:54 Enoxaparin 40 Mg/0.4 Ml Syringe SUBQ 40 mg DAILY LUIZ Administration Fluticasone Propionate 2 sprays 06/22/21 09:00 06/22/21 08:40 Fluticasone Nasal [place] GOLDIE 2 sprays DAILY LUIZ Administration Folic Acid 1 mg 06/22/21 11:00 06/22/21 10:54 Folic Acid 1 Mg Tablet PO 1 mg DAILY LUIZ Administration Guaifenesin/Codeine Phosphate 5 ml 06/20/21 13:41 06/22/21 18:11 Guaifenesin/Codeine 5 Ml Udc PO 5 ml Q6HR PRN Administration Cough Hydroxychloroquine Sulfate 200 mg 06/22/21 21:00 06/22/21 20:18 Hydroxychloroquine 200 Mg Tablet PO 200 mg BID LUIZ Administration Ceftriaxone Sodium 1 gm/ 100 mls @ 200 mls/hr 06/21/21 09:00 06/22/21 10:53 Sodium Chloride IV 06/25/21 09:29 Infused DAILY LUIZ Infusion Azithromycin 500 mg/ Sodium 250 mls @ 250 mls/hr 06/21/21 09:00 06/22/21 12:42 Chloride IV 06/23/21 09:59 Infused DAILY LUIZ Infusion Insulin Aspart 1 - 9 unit 06/20/21 08:00 06/23/21 07:33 Insulin Aspart 300 Unit/3 Ml Pen SUBQ Not Given 0800,1200,1700,2100 [facility] Protocol Montelukast Sodium 10 mg 06/21/21 21:00 06/22/21 20:17 Montelukast 10 Mg Tablet PO 10 mg QPM LUIZ Administration Advair 230/ 2 each 06/20/21 20:00 06/23/21 06:21 INH 2 each RTBID LUIZ Administration Pregabalin 75 mg 06/21/21 12:00 06/22/21 20:18 Pregabalin 25 Mg Capsule PO 75 mg BID LUIZ Administration Sertraline HCl 100 mg 06/21/21 12:00 06/22/21 08:39 Sertraline 50 Mg Tablet PO 100 mg DAILY LUIZ Administration Sodium Chloride 10 ml 06/20/21 09:00 06/23/21 00:30 Sodium Chloride Flush 0.9% 10 Ml Syringe IVP 10 ml 0100,0900,1700 LUIZ Administration - Lab Result Fish Bone Diagrams: 06/23/21 05:26 06/23/21 05:26 - Additional Planning My Orders: My Active Orders 06/22/21 09:00 Fluticasone [Flonase] 2 sprays GOLDIE DAILY 06/22/21 11:00 Enoxaparin [Lovenox] 40 mg SUBQ DAILY Folic Acid 1 mg PO DAILY 06/22/21 11:15 Carboxymethylcellulose 1% Opht [Refresh 1% Ophth Drops] 1 drops EACHEYE Q4HR PRN 06/22/21 21:00 Hydroxychloroquine [Plaquenil] 200 mg PO BID 06/23/21 09:00 Echo Transthoracic Complete [ECHO] Routine Cyanocobalamin [Vitamin B-12] 500 mcg PO DAILY Objective Vital Signs: Vital Signs - 24 hr 06/22/21 06/22/21 06/22/21 08:53 12:10 15:45 Temperature 36.7 C 36.8 C 36.7 C Heart Rate [ 63 57 L 57 L Brachial] Respiratory 18 16 16 Rate Blood Pressure 114/60 120/70 121/67 [Right Brachial artery] O2 Saturation 95 96 94 06/22/21 06/22/21 06/23/21 16:13 20:09 00:18 Temperature 36.5 C 36.4 C L Heart Rate [ 55 L 55 L Brachial] Respiratory 19 18 19 Rate Blood Pressure 133/73 H 124/73 [Right Brachial artery] O2 Saturation 93 93 92 06/23/21 06:07 Temperature 36.7 C Heart Rate [ 46 L Brachial] Respiratory 19 Rate Blood Pressure 108/67 [Right Brachial artery] O2 Saturation 97 Oxygen O2 Source Nasal cannula Oxygen Flow Rate 2 I&O (Last 24 Hrs): Intake and Output Totals x24h 06/21/21 06/22/21 06/23/21 23:59 23:59 23:59 Intake Total 1390 2137 50 Balance 1390 2137 50 - Results Results: Laboratory Results WBC 4.6 x10^3/uL (4.8-10.8) L 06/23/21 05:26 RBC 3.61 10^6/uL (4.20-5.40) L 06/23/21 05:26 Hgb 10.8 g/dL (12.0-16.0) L 06/23/21 05:26 Hct 34.1 % (37.0-47.0) L 06/23/21 05:26 MCV 94.5 fL (81.0-99.0) 06/23/21 05:26 MCH 29.9 pg (27.0-31.0) 06/23/21 05:26 MCHC 31.7 g/dL (32.0-36.0) L 06/23/21 05:26 RDW 15.6 % (12.0-15.0) H 06/23/21 05:26 Plt Count 323 10^3/uL (130-450) 06/23/21 05:26 MPV 9.0 fL (7.9-10.8) 06/23/21 05:26 Neut # (Auto) 2.9 10^3/uL (1.5-6.6) 06/23/21 05:26 Lymph # (Auto) 1.0 10^3/uL (1.5-3.5) L 06/23/21 05:26 [place] # (Auto) 0.4 10^3/uL (0.0-1.0) 06/23/21 05:26 Eos # (Auto) 0.1 10^3/uL (0.0-0.7) 06/23/21 05:26 Baso # (Auto) 0.0 10^3/uL (0.0-0.1) 06/23/21 05:26 Absolute Nucleated RBC 0.00 x10^3/uL 06/23/21 05:26 Nucleated RBC % 0.0 /100WBC 06/23/21 05:26 D-Dimer 1034.6 ng/mL (200.0-255.0) H 06/20/21 07:30 VBG pH 7.349 (7.31-7.41) 06/20/21 02:45 VBG pCO2 38.2 mmHg (41-51) L 06/20/21 02:45 VBG pO2 87.2 mmHg (25-47) H 06/20/21 02:45 VBG HCO3 20.6 mmol/L (23-28) L 06/20/21 02:45 VBG Total CO2 21.7 mmol/L (24-29) L 06/20/21 02:45 VBG O2 Saturation 95.8 % (60-80) H 06/20/21 02:45 VBG Base Excess -4.6 mmol/L (-2 - +2) L 06/20/21 02:45 Sodium 140 mmol/L (135-145) 06/23/21 05:26 Potassium 4.3 mmol/L (3.5-5.0) 06/23/21 05:26 Chloride 103 mmol/L (101-111) 06/23/21 05:26 Carbon Dioxide 26 mmol/L (21-32) 06/23/21 05:26 Anion Gap 11.0 (6-13) 06/23/21 05:26 BUN 25 mg/dL (6-20) H 06/23/21 05:26 Creatinine 1.0 mg/dL (0.4-1.0) 06/23/21 05:26 Estimated GFR (MDRD) 58 (>89) L 06/23/21 05:26 Glucose 96 mg/dL (70-100) 06/23/21 05:26 POC Whole Bld Glucose 128 mg/dL (70 - 100) H 06/23/21 07:28 Calcium 9.0 mg/dL (8.5-10.3) 06/23/21 05:26 Total Bilirubin 0.4 mg/dL (0.2-1.0) 06/20/21 02:35 AST 18 IU/L (10-42) 06/20/21 02:35 ALT 16 IU/L (10-60) 06/20/21 02:35 Alkaline Phosphatase 88 IU/L (42-121) 06/20/21 02:35 Troponin I High Sens 6.3 ng/L (2.3-14.8) 06/20/21 07:30 Total Protein 7.2 g/dL (6.7-8.2) 06/20/21 02:35 Albumin 3.1 g/dL (3.2-5.5) L 06/20/21 02:35 Globulin 4.1 g/dL (2.1-4.2) 06/20/21 02:35 Albumin/Globulin Ratio 0.8 (1.0-2.2) L 06/20/21 02:35 Lipase 207 U/L (22-51) H 06/20/21 02:35 25-OH Vitamin D Total 21 ng/mL (30-100) L 06/20/21 02:35 Nasal Adenovirus (PCR) NOT DETECTED 06/20/21 02:35 Nasal B. parapertussis DNA (PCR) NOT DETECTED 06/20/21 02:35 Nasal Coronavir 229E PCR NOT DETECTED 06/20/21 02:35 Nasal Coronavir HKU1 PCR NOT DETECTED 06/20/21 02:35 Nasal Coronavir NL63 PCR NOT DETECTED 06/20/21 02:35 Nasal Coronavir OC43 PCR NOT DETECTED 06/20/21 02:35 Nasal Enterovir/Rhinovir PCR NOT DETECTED 06/20/21 02:35 Nasal Influenza B PCR NOT DETECTED 06/20/21 02:35 Nasal Influenza A PCR NOT DETECTED 06/20/21 02:35 Nasal Parainfluen 1 PCR NOT DETECTED 06/20/21 02:35 Nasal Parainfluen 2 PCR NOT DETECTED 06/20/21 02:35 Nasal Parainfluen 3 PCR NOT DETECTED 06/20/21 02:35 Nasal Parainfluen 4 PCR NOT DETECTED 06/20/21 02:35 Nasal RSV (PCR) NOT DETECTED 06/20/21 02:35 Nasal B.pertussis DNA PCR NOT DETECTED 06/20/21 02:35 Nasal C.pneumoniae (PCR) NOT DETECTED 06/20/21 02:35 Goldie Human Metapneumo PCR NOT DETECTED 06/20/21 02:35 Nasal M.pneumoniae (PCR) NOT DETECTED 06/20/21 02:35 Nasal SARS-CoV-2 (PCR) DETECTED A 06/20/21 02:35
[2021-06-23] MEDS: AZITHROMYCIN INJ 500 MG in SODIUM CHLORIDE 0.9% 250 ML IV SCH (08:21)
[2021-06-23] MEDS: ENOXAPARIN 40 MG/0.4 ML SYRINGE SUBQ SCH (08:24)
[2021-06-23] MEDS: FOLIC ACID 1 MG TABLET PO SCH (08:24)
[2021-06-23] MEDS: PREGABALIN 25 MG CAPSULE PO SCH (08:24)
[2021-06-23] MEDS: SERTRALINE 50 MG TABLET PO SCH (08:25)
[2021-06-23] MEDS: dexAMETHasone 4 MG TABLET PO SCH (08:25)
[2021-06-23] MEDS: HYDROXYCHLOROQUINE 200 MG TABLET PO SCH (08:25)
[2021-06-23] MEDS: FLUTICASONE NASAL SPRAY NAS SCH (08:26)
[2021-06-23] MEDS ORDERED: CYANOCOBALAMIN 500 MCG TABLET PO SCH (09:00)
[2021-06-23] MEDS: cefTRIAXone 1 GM in SODIUM CHLORIDE 0.9% MINIBAG 100 ML IV SCH (09:31)
[2021-06-23] MEDS ORDERED: DOCUSATE SODIUM 250 MG CAPSULE PO PRN (10:05)
[2021-06-23] MEDS ORDERED: SENNA 8.6 MG TABLET PO PRN (10:05)
[2021-06-23] MEDS ORDERED: polyethylene glycoL 3350 17 GM PACKET PO SCH (11:00)
--- NOTE | 2021-06-23 13:00 | DISCHARGE SUMMARY ---
Discharge Summary Admit Date: 06/20/21 Discharge Date: 06/23/21 Discharging Provider: Adilene Mendez Condition at Discharge: Stable Discharge Disposition: 01 Home, Self Care - DIAGNOSES Admission Diagnoses: Acute respiratory failure with hypoxia Pneumonia due to COVID-19 virus Pulmonary sarcoidosis Type 2 diabetes mellitus Rheumatoid arthritis Discharge Diagnoses with Status of Each Condition: Acute respiratory failure with hypoxia: Secondary to COVID-19 and pulmonary sarcoidosis. Acute on chronic. Stable/improved. Patient discharged with supplemental oxygen and Decadron. Pneumonia due to COVID-19 virus: Acute. Stable/improved. Patient discharged with supplemental oxygen and Decadron. Pulmonary sarcoidosis: Patient is to resume methotrexate and hydroxychloroquine Type 2 diabetes mellitus: Patient will resume Januvia at home Rheumatoid arthritisPatient is to resume methotrexate and hydroxychloroquine - HPI History of Present Illness: This is a 55-year-old female with a past medical history significant for pulmonary sarcoidosis, psoriatic arthritis, rheumatoid arthritis, type 2 diabetes mellitus who presents today complaining of worsening shortness of breath. She states she demonstrated breath for past week or so but this has really progressed for the past 2 to 3 days. She was diagnosed with Covid she believes in mid May but was never hospitalized for this. The emergency department physician confirmed that she did test positive for Covid but this was actually more recent on June 09. The patient is vaccinated with maternal and has received a booster shot. She states that she began to feel short of breath a bout a little over a week ago and she had a televisit with her administrative volunteer at [facility] who prescribed her prednisone taper for suspected exacerbation of her pulmonary sarcoidosis. She states she is in the last 3 days of her taper now but she has felt more short of breath. She states she almost always feels short of breath with activity and that is her baseline but this is now a little worse than usual. She is not on oxygen at baseline. She states her pulse ox usually varies from 90-95% with activity and is above 95% at rest. She has had no fevers or chills. Her chronic cough is the same. She denies any chest pain, leg edema, history of DVT, recent travel. She is on methotrexate, hydr oxychloroquine, Januvia. She normally takes methotrexate on Mondays but did not take this yesterday as she has been at the hospital with her daughter who just gave 3 days ago and she forgot to bring her medications. In the emergency department, she is noted to be hypoxic on room air with sats in the high 70s with activity. At rest her saturations were stable in the mid 90s on room air. Chest x-ray revealed bilateral infiltrates. She was given Decadron and medicine was consulted for admission. We discussed goals of care and she would like to be a full code. - HOSPITAL COURSE Hospital Course: Was maintained on dexamethasone 6 mg p.o. daily throughout her hospital stay. Upon discharge she was prescribed 6 tablets of dexamethasone 6 mg to complete taking. She required 3 L of oxygen via nasal cannula to keep her oxygen saturation greater than 90 throughout most of her hospital stay. Desaturation study was done on 06/23/2021 prior to discharge She was hypoxic on room air at rest with oxygen saturation of 86%. She required 2 L/min nasal cannula at rest. She was hypoxic with 2 L on ambulation with oxygen saturation of 83%. She required 4 L with ambulation to achieve saturation of 91%. As a result I am ordering home oxygen at 2 L at rest and 4 L with ambulation to treat the patient's COVID-19. She had a CT angiogram of the chest done which was negative for pulmonary embolus. During her hospital stay she was bradycardic with heart rate as low as the 40s. However she was asymptomatic. A 2D echocardiogram was unremarkable. I spoke with the patient's supervisor contact and service clerks at [facility] Dr. Torrez. He will schedule for an outpatient monitor and subsequent follow-up/work-up through his clinic. This information was relayed to the patient. Upon discharge she was prescribed cough with codeine, Tessalon Perles to use as needed for her cough. She was advised that if she should experience dizziness, worsening weakness she was to check her pulse and if significantly low and the symptoms persisted she should not hesitate to seek medical attention. Also if her breathing worsened despite her inhaler and supplemental oxygen she should also seek medical attention. She may follow-up with her primary care physician as needed. - ALLERGIES Allergies/Adverse Reactions: Allergies Allergy/AdvReac Type Severity Reaction Status Date / Time Sulfa (Sulfonamide Allergy Severe Hives Verified 06/23/21 09:32 Antibiotics) - MEDICATIONS Home Medications: Ambulatory Orders Medication Instructions Recorded Confirmed Albuterol Sulfate [Proair Hfa 2 puffs INH Q4H PRN 06/20/21 06/20/21 Inhaler] Apremilast [Otezla] 30 mg PO BID 06/20/21 06/20/21 Cyanocobalamin (Vitamin B-12) 500 mcg PO DAILY 06/20/21 06/20/21 [Vitamin B-12] Fluticasone [Flonase] 2 sprays GOLDIE DAILY 06/20/21 06/20/21 Fluticasone/Salmeterol [Advair Hfa 2 puffs INH BID 06/20/21 06/20/21 230-21 Mcg Inhaler] Folic Acid 1 mg PO SUTUWETHFRSA 06/20/21 06/20/21 Hydroxychloroquine Sulfate 200 mg PO BID 06/20/21 06/22/21 Meloxicam [Mobic] 15 mg PO DAILY 06/20/21 06/20/21 Methotrexate Inj [Methotrexate] 25 mg IM MO 06/20/21 06/20/21 Montelukast [Singulair] 10 mg PO QPM 06/20/21 06/20/21 Pregabalin [Lyrica] 75 mg PO BID 06/20/21 06/20/21 SITagliptin [Januvia] 100 mg PO DAILY 06/20/21 06/20/21 Sertraline HCl 100 mg PO DAILY 06/20/21 06/20/21 Simvastatin [Zocor] 20 mg PO QPM 06/20/21 06/20/21 Benzonatate [Tessalon] 100 mg PO TID PRN #15 06/23/21 dexAMETHasone [Decadron] 6 mg PO DAILY 6 Days #6 tablet 06/23/21 guaiFENesin/CODEINE [Robitussin AC] 5 ml PO Q6HR PRN #1 bottle 06/23/21 - PHYSICAL EXAM AT DISCHARGE General Appearance: positive: Alert, Mild distress Eyes Bilateral: positive: PERRL, EOMI ENT: positive: No signs of dehydration Neck: positive: No JVD, Trachea midline Respiratory: positive: Chest non-tender, Other (Mild respiratory distress) Cardiovascular: positive: No murmur, Bradycardia (sinus) Abdomen: positive: Non-tender, No organomegaly, Nml bowel sounds, No distention. negative: Guarding, Rebound Back: positive: Nml inspection Skin: positive: Color nml, No rash, Warm, Dry Extremities: positive: Non-tender, Full ROM, Nml appearance, No pedal edema Neurologic/Psychiatric: positive: Oriented x3, Mood/affect nml - LABS Result Diagrams: 06/23/21 05:26 06/23/21 05:26 - TIME SPENT Time Spent in Discharge (Minutes): 20
--- NOTE | 2021-06-23 13:04 | Discharge Plan ---
Discharge Plan Problem Reviewed?: Yes Disposition: Home, Self Care Condition: Stable Prescriptions: guaiFENesin/CODEINE [Robitussin AC] 5 ml PO Q6HR PRN #1 bottle PRN Reason: Cough dexAMETHasone [Decadron] 6 mg PO DAILY 6 Days #6 tablet Benzonatate [Tessalon] 100 mg PO TID PRN #15 PRN Reason: Cough Diet: Diabetic Activity Restrictions: Activity as Tolerated Health Concerns: You were admitted on 06/20/2021 with shortness of breath work-up included a Covid test which indicated you were positive for Covid. You were started on dexamethasone 6 mg IV daily. You were not treated with remdesivir because your symptoms had been going on for more than 10 days at the time of presentation. You had a CT angiogram of the chest which was negative for a pulmonary embolus. Throughout your hospital stay you were on about 3 L of oxygen via nasal cannula to keep your oxygen saturation in the 90s. On the day of discharge you were evaluated for oxygen need at home and determined to need 2 L of oxygen while at rest and up to 6 L with activity. You have been prescribed oxygen for home. You have been bradycardic with heart rate between 40 and 50s while in the hospital. You are asymptomatic. Your hadoop infrastructure architect: Dr. Torrez with [facility] cardiology was contacted you have seen him in the past. He was scheduled for monitor and subsequent follow-up/work-up. You have been advised that if you get dizzy or feeling weaker and or if your breathing seems more labored despite using your inhalers and increasing your oxygen supply do not hesitate to seek medical attention. You expressed understanding to the above and are in agreement. You may follow-up with your primary care physician as needed. No Smoking: If you smoke, Please STOP! Call for help. Follow-up with: Fanny See MD [Primary Care Provider] -
[2021-06-23 14:22] VITALS: BP 137/65
== END 2021-06-23 15:00 | disposition home or self-care (01) | DRG 177 ==
LOC: ED 02:13 → MS2 03:13
PROVIDERS: ADMIT Internal Medicine; ATTEND Internal Medicine
PROC: 3E0333Z Introduction of Anti-inflammatory into Peripheral Vein, Percutaneous Approach (ICD-10-PCS; principal; 2021-06-20)
DX: U07.1 COVID-19 (principal); D64.9 Anemia, unspecified; J12.82 Pneumonia due to coronavirus disease 2019; J96.01 Acute respiratory failure with hypoxia; D86.0 Sarcoidosis of lung; E11.9 Type 2 diabetes mellitus without complications; Z79.84 Long term (current) use of oral hypoglycemic drugs; M06.9 Rheumatoid arthritis, unspecified; Z79.899 Other long term (current) drug therapy; R00.1 Bradycardia, unspecified
CPT/HCPCS: 36415; 71045; 71275; 80048; 80053; 82306; 82803; 83690; 84484; 85025; 85379; 87631; 93005; 93306; 94761; 96374; 99284; 99285; A9270; J1650; J8540; Q9967; 0202U